=== PATIENT | male | born 1985 | race Caucasian/White ===

== ENCOUNTER 2017-10-19 06:53 | Day surgery (SDC) | payer OTHER ==
[2017-10-19] MEDS ORDERED: PROPOFOL 200 MG/20 ML VIAL As Ordered ×2 (07:10)
[2017-10-19] MEDS: NS 1,000 ML IV (07:25)
== END 2017-10-19 09:28 | disposition home or self-care (01) ==
LOC: M OPP 06:53
DX: K92.1 Melena (principal); K62.1 Rectal polyp; K64.8 Other hemorrhoids; K63.89 Other specified diseases of intestine; M54.5 Low back pain; F41.9 Anxiety disorder, unspecified; G43.909 Migraine, unspecified, not intractable, without status migrainosus; F17.210 Nicotine dependence, cigarettes, uncomplicated; Z79.899 Other long term (current) drug therapy
CPT/HCPCS: 45380

== ENCOUNTER → 2024-04-04 | Outpatient (CLI) | payer OTHER ==
[~2024-04-04] MED LIST: FIORCAP3 PO; SENN8.6T63 PO
== END ==
LOC: M PLARAD 11:40
DX: G56.01 Carpal tunnel syndrome, right upper limb (principal); G56.20 Lesion of ulnar nerve, unspecified upper limb